=== PATIENT | male | born 1970 | race Caucasian/White ===

== ENCOUNTER → 2021-11-23 13:22 | Outpatient (CLI) | payer BC, SELFPAY ==
--- NOTE | ~2021-11-23 | US_ITS ---
EXAMINATION:US venous doppler LE LT INDICATION:Left leg pain TECHNIQUE: Multiple grayscale, color flow and Doppler images of the left lower extremity deep venous systems were obtained and reviewed. COMPARISON:No prior studies for comparison. FINDINGS: The common femoral, superficial femoral and popliteal veins demonstrate normal respiratory variation, augmentation and compressibility. Color flow is also seen within the posterior tibial, pe roneal, greater saphenous and profunda veins. There is an elongated hypoechoic fluidlike structure in the left posterior calf measuring 15.4 x 1.8 x 3.3 cm, likely hematoma/seroma. IMPRESSION: 1: No lower extremity deep venous thrombosis. Reviewed, dictated and finalized at location B.
== END ==
PROVIDERS: PCP Physician Assistant Medical; Visit Provider Family Medicine
DX: R60.0 Localized edema (principal)
CPT/HCPCS: 93971

== ENCOUNTER 2022-11-18 11:12 | Outpatient (CLI) | payer BC, SELFPAY ==
--- NOTE | ~2022-11-18 | US_ITS ---
Please refer to diagnostic mammogram report dated 11/18/2022 for details. Reviewed, dictated and finalized at location A.
--- NOTE | ~2022-11-18 | MM_ITS ---
CORRECTED REPORT See examination for correction. This report was recreated on 11/22/2022. Original report was 11/22/2022 sef EXAMINATION: MM diagnostic sandra bilateral w milady, US breast LT limited HISTORY: Palpable lump in the lower outer left breast. TECHNIQUE: Craniocaudal and mediolateral oblique 3-D tomosynthesis images of the breasts were performed and synthetic 2-D images were generated. CAD analysis was submitted and interpreted. High resolution limited left breast ultrasound was performed. COMPARISON: None BREAST PARENCHYMAL COMPOSITION: The breasts are almost entirely fatty. FINDINGS: MAMMOGRAPHIC FINDINGS: No mammographic correlate is identified for the reported palpable abnormality of the left breast. No suspicious mass, calcification, or architectural distortion are identified. ULTRASOUND: There is a 1.4 x 0.4 cm oval, circumscribed, hyperechoic mass at the 4:00 location, 3 cm from the nipple with no posterior features or internal vascularity corresponding to the palpable abnormality of the left breast, likely lipoma. IMPRESSION: 1. 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 No suspicious mammographic or sonographic correlate is identified for the reported palpable abnormality of concern. Further evaluation at this time should be based on clinical assessment. Continued follow-up physical examination is recommended. BI-RADS Category 2: Benign finding(s). Reviewed, dictated and finalized at location A. MTDD IMPRESSION: 1. Probable angiomyolipoma of the left breast corresponding to the palpable abn ormality. No suspicious mammographic or sonographic correlate is identified for the reported palpable abnormality of concern. Further evaluation at this time should be based on clinical assessment. Continued follow-up physical examinatio n is recommended. BI-RADS Category 2: Benign finding(s).
== END 2022-11-18 11:13 | disposition home or self-care (01) ==
PROVIDERS: PCP Physician Assistant Medical; Visit Provider Physician Assistant Medical
DX: N63.20 Unspecified lump in the left breast, unspecified quadrant (principal)
CPT/HCPCS: 76642; 77062; 77066; G0279

== ENCOUNTER → 2022-12-16 09:41 | Outpatient (REF) | payer BC, SELFPAY | LOC: ANHLAB 09:41 | PROVIDERS: PCP Physician Assistant Medical; Visit Provider Surgery | DX: N63.20 Unspecified lump in the left breast, unspecified quadrant (principal) | CPT/HCPCS: 88305 ==

== ENCOUNTER 2023-01-21 02:48 | Day surgery (SDC) | payer BC, SELFPAY ==
[2023-01-12 14:17] VITALS: BMI 33.5
[2023-01-21 08:09] VITALS: BP 149/96; RESP 18; TEMP 36; O2SAT 97; BMI 33.4
[2023-01-21] MEDS: LACTATED RINGERS 1,000 ML 150 ML IV CONT (08:11)
--- NOTE | 2023-01-21 08:18 | PM.HPGS ---
History of Present Illness History of Present Illness Consent: Risks, benefits, and alternatives have been discussed and questions answered. Patient agrees to proceed with procedure. Chief complaint: neoplasm screening Narrative: Dequan Rea is a 52 year old male Referred for colon cancer screening. Review of Systems Review of Systems: All systems reviewed & are unremarkable except as noted in HPI and below PMFSH Past Medical History Medical History Achilles tendon tear Allergies Anxiety Basal cell adenocarcinoma Biceps muscle strain Cervicalgia of jclfhjfs-teauztb-hkogk region chronic Dyslipidemia Edema of left foot Gastrocnemius muscle tear GERD with apnea Hernia NIMA (obstructive sleep apnea) did not tolerate CPAP Pain of left calf Splenomegaly Dr.. [place] Testosterone deficiency Vitamin D deficiency Surgical History Surgical History History of appendectomy Status post Mohs surgery Family History Family History Father Skin cancer Diabetes mellitus Hypertension Cerebrovascular accident Mother Diabetes mellitus Hypertension Disorder of thyroid Sibling Hypertension Grandparent Diabetes mellitus Carcinoma of colon Heart disease Social History Social History Smoking status: Never smoker Alcohol intake: current Drinks per week: 3 Alcohol use details: per week Substance use: never Substance use type: does not use Lack of Transportation: No Lack of Food: Never True Current Housing: I Have Housing Concerned About Future Housing: No Difficulty Paying Gas/Electric Bills: No Difficulty Paying for Meds: No Currently Unemployed: No Education: High School Diploma/GED Difficulty w/ Childcare or Family Care: No Living arrangements: with family Occupation/Education: occupation Gender identity (if verbalized by the patient): Male Spiritual care concerns: No Meds Home Medications and Allergies Home Medications Medication Instructions Recorded Confirmed Type ascorbic acid (vitamin C) 1,000 mg 1 g PO DAILY 11/11/21 01/21/23 History capsule aspirin 81 mg tablet,delayed 81 mg PO DAILY 11/11/21 01/21/23 History release (Adult Aspirin Regimen) cyanocobalamin (vitamin B-12) 1,000 mcg PO DAILY 11/11/21 01/21/23 History 1,000 mcg capsule loratadine 10 mg disintegrating 10 mg PO DAILY 11/11/21 01/21/23 History tablet (Alavert) testosterone 50 mg/5 gram (1 %) 1 tube transdermal QAM 11/11/21 01/21/23 History transdermal gel atorvastatin 10 mg tablet 10 mg PO DAILY #90 tabs 10/19/22 01/21/23 Rx alprazolam 0.5 mg tablet 0.5 mg PO BID PRN anxiety #60 tabs 10/22/22 01/21/23 Rx cholecalciferol (vitamin D3) 25 25 mcg PO BID 10/22/22 01/21/23 History mcg (1,000 unit) capsule Allergies Allergy/AdvReac Type Severity Reaction Status Date / Time No Known Allergies Allergy Unknown Verified 01/21/23 08:08 Vital Signs Vital Signs - 24 hr 01/21/23 08:09 Temperature 36.0 C L Respiratory Rate 18 Blood Pressure 149/96 H Pulse Oximetry 97 Oxygen Delivery Room Air Exam Const: General: alert Orientation/consciousness: patient oriented x3 Resp: Auscultation: clear to auscultation bilaterally Cardio: Rhythm: regular rhythm GI: GI Palp: Yes Soft to palpation and No Tenderness to palpation present (GI) Neuro: General: patient oriented x3 Assessment and Plan Assessment and plan (1) Screening for colon cancer: Code(s): Z12.11 - Encounter for screening for malignant neoplasm of colon Status: Acute Assessment and Plan: Colonoscopy with possible biopsy or polypectomy or cautery or injection of substances.
--- NOTE | 2023-01-21 09:15 | WPDANESEPPF ---
Anes - Initial Pre Proc Eval Procedure: Operation Date: 01/21/23 09:00 Proposed Procedures p Screening Colonoscopy - Flakito Carrillo MD Date/Time: 01/21/23 09:15 Surgeon: Flakito Carrillo MD Pre Op Diagnosis: neoplasm screening Patient Data Age: 52 Gender: M Height: 1.83 m Weight: 111.9 kg Last Vital Signs Temp 96.8 F L 01/21/23 08:09 Resp 18 01/21/23 08:09 BP 149/96 H 01/21/23 08:09 Pulse Ox 97 01/21/23 08:09 O2 Del Method Room Air 01/21/23 08:09 Allergies Allergy/AdvReac Type Severity Reaction Status Date / Time No Known Allergies Allergy Unknown Verified 01/21/23 08:08 Home Medications Medication Instructions Recorded Confirmed Type ascorbic acid (vitamin C) 1,000 mg 1 g PO DAILY 11/11/21 01/21/23 History capsule aspirin 81 mg tablet,delayed 81 mg PO DAILY 11/11/21 01/21/23 History release (Adult Aspirin Regimen) cyanocobalamin (vitamin B-12) 1,000 mcg PO DAILY 11/11/21 01/21/23 History 1,000 mcg capsule loratadine 10 mg disintegrating 10 mg PO DAILY 11/11/21 01/21/23 History tablet (Alavert) testosterone 50 mg/5 gram (1 %) 1 tube transdermal QAM 11/11/21 01/21/23 History transdermal gel atorvastatin 10 mg tablet 10 mg PO DAILY #90 tabs 10/19/22 01/21/23 Rx alprazolam 0.5 mg tablet 0.5 mg PO BID PRN anxiety #60 tabs 10/22/22 01/21/23 Rx cholecalciferol (vitamin D3) 25 25 mcg PO BID 10/22/22 01/21/23 History mcg (1,000 unit) capsule Patient hx anesthesia problems: none Family hx anesthesia problems: none Results Review: All pre-operative results and documents have been reviewed as part of the pre-operative evaluation. [facility] Past Medical History Medical History Achilles tendon tear Allergies Anxiety Basal cell adenocarcinoma Biceps muscle strain Cervicalgia of qafviafi-bzacxsw-mpiuh region chronic Dyslipidemia Edema of left foot Gastrocnemius muscle tear GERD with apnea Hernia NIMA (obstructive sleep apnea) did not tolerate CPAP Pain of left calf Splenomegaly Dr.. [place] Testosterone deficiency Vitamin D deficiency Surgical History Surgical History History of appendectomy Status post Mohs surgery Family History Family History Father Skin cancer Diabetes mellitus Hypertension Cerebrovascular accident Mother Diabetes mellitus Hypertension Disorder of thyroid Sibling Hypertension Grandparent Diabetes mellitus Carcinoma of colon Heart disease Social History Social History Smoking status: Never smoker Alcohol intake: current Drinks per week: 3 Alcohol use details: per week Substance use: never Substance use type: does not use Lack of Transportation: No Lack of Food: Never True Current Housing: I Have Housing Concerned About Future Housing: No Difficulty Paying Gas/Electric Bills: No Difficulty Paying for Meds: No Currently Unemployed: No Education: High School Diploma/GED Difficulty w/ Childcare or Family Care: No Living arrangements: with family Occupation/Education: occupation Gender identity (if verbalized by the patient): Male Spiritual care concerns: No Anes - Eval Final PreProcedure Day of Procedure 01/21/23 09:15 Patient weight: obese Heart: regular rate and rhythm Lungs: clear to auscultation Airway: Mallampati scale class II Neurological: alert and oriented Last oral intake: >/= 8 hours ASA classification: III Emergent: no Anesthetic plan: proceed Anesthesia type and monitoring: general GIVS and standard monitoring Results Review: All pre-operative results and documents have been reviewed as part of the pre-operative evaluation. Informed Consent: The patient's anesthetic plan and its attendant risks and benefits were discussed with the
[2023-01-21] MEDS: SIMETHICONE ORAL SUSPENSION 20 MG/0.3 ML 30 ML BOTTLE 0.6 ML IRRIGATION (09:23)
[2023-01-21 09:36] VITALS: BP 130/78; PULSE 80; RESP 21; O2SAT 95
[2023-01-21 09:46] VITALS: BP 144/99; PULSE 62; RESP 22; O2SAT 96
[2023-01-21 09:56] VITALS: BP 150/106; PULSE 63; RESP 22; O2SAT 97
== END 2023-01-21 10:04 | disposition home or self-care (01) ==
PROVIDERS: PCP Physician Assistant Medical; Visit Provider Internal Medicine Gastroenterology
PROC: 0DJD8ZZ Inspection of Lower Intestinal Tract, Via Natural or Artificial Opening Endoscopic (ICD-10-PCS; CPT 45378; principal; 2023-01-21 09:00)
DX: Z12.11 Encounter for screening for malignant neoplasm of colon (principal); K64.8 Other hemorrhoids; G47.33 Obstructive sleep apnea (adult) (pediatric); E55.9 Vitamin D deficiency, unspecified; F41.9 Anxiety disorder, unspecified; E78.5 Hyperlipidemia, unspecified; K21.9 Gastro-esophageal reflux disease without esophagitis; Z79.82 Long term (current) use of aspirin; Z79.890 Hormone replacement therapy; E66.9 Obesity, unspecified; Z68.33 Body mass index [BMI] 33.0-33.9, adult
CPT/HCPCS: 45378; J2704; J7120

== ENCOUNTER 2023-03-21 07:54 | Outpatient (CLI) | payer BC, SELFPAY ==
--- NOTE | ~2023-03-21 | US_ITS ---
EXAMINATION: US abdomen limited DATE: 03/21/2023 08:30 INDICATION: Splenomegaly. TECHNIQUE: Multiple grayscale and Doppler ultrasound images of the abdomen were obtained. COMPARISON: None FINDINGS: There is moderate splenomegaly measuring 16.4 cm. There is no splenic mass. IMPRESSION: 1. Moderate splenomegaly. Reviewed, dictated and finalized at location A. [employer] IMPRESSION: 1. Moderate splenomegaly.
== END 2023-03-21 07:55 | disposition home or self-care (01) ==
PROVIDERS: PCP Physician Assistant Medical; Visit Provider Internal Medicine Medical Oncology
DX: R16.1 Splenomegaly, not elsewhere classified (principal)
CPT/HCPCS: 76705